=== PATIENT | female | born 1940 | race Caucasian/White ===

== ENCOUNTER 2017-01-22 06:13 | Day surgery (SDC) | payer OTHER ==
[~2017-01-22] VITALS: Ht 162.6 cm; Wt 93.8 kg
[~2017-01-22 06:13] MED LIST: AMBIEN5 MG PO; AMITRIPTYLINE H10 MG PO; ARMOUR THYROID30 MG PO; ASPIRIN81 M1 PO; ATACAND8 MG PO; ATROVENT IN; COMBIVENT RESPIMAT IN; CYCLOBENZAPRINE10 MG PO; ESTRACE1 MG PO; EXCEDRIN EXTRA STREN PO; FISH OIL1000 M1 PO; HCTZ/TRIAMTEREN1 TA1 PO; ICAPS PO; IMITREX25 MG PO; LEVOTHYROXINE25 MCG PO; MELOXICAM15 MG; MELOXICAM7.5 MG PO; METFORMIN HCL500 MG PO; MULTIPLE VITAMIN PO; MULTIVITAMIN1 TAB PO; NEURONTIN300 MG PO; NITROSTAT0.4 MG SL; OMEPRAZOLE20 M1 PO; PERCOCET1 TA1 PO; POTASSIUM CHLO20 ME4 PO; PROTONIX40 MG PO; RED YEAST RICE PO; TYLENOL325 MG PO; VERAPAMIL HCL120 M3 PO; VERAPAMIL HCL240 M4 PO; ZYRTEC ALLERGY10 MG PO
--- NOTE | 2017-01-22 06:58 | NUR ---
PREOP INSTRUCTIONS GIVEN TO PATIENT AND HER . QUESTIONS ANSWERED. PATIENT VERBALIZES UNDERSTANDING. CONSENT CONFIRMED. TYLENOL STARTED ON TRANSPORT. PATIENT APPEARS TO BE RESTING COMFORTABLY. IN ROOM. KB
--- NOTE | 2017-01-22 07:39 | NUR ---
INTRODUCED SELF TO PT IN PRE OP HOLDING. PT VERIFIED NAME, BIRTHDATE, ALLERGIES AND SURGICAL CONSENT. PT STATED NPO PREMIDINIGHT. PT TOOK ROUTINE MEDICATIONS YESTERDAY BUT NONE TODAY. PT VOIDED IMMEDIATELY PRIOR TO TRANSPORT TO PRE OP HOLDING. 1000MG IV TYLENOL INFUSING IN PRE OP HOLDING. ANTIBIOTIC AVAIL FOR INFUSION BY ANESTHESIA. PT CHART REVIEWED AND PT QUESTIONS ANSWERED. KIMBERLEE
--- NOTE | 2017-01-22 08:27 | NUR ---
PT RESTATED NAME, BIRTHDATE AND SURGICAL PROCEDURE AFTER ENTERING OR SUITE. PT MOVED TO OR BED WITH MINIMAL ASSIST. PILLOW PLACED UNDER PT KNEES FOR POSITION OF COMFORT. PULSATILE STOCKINGS INITIATED PRIOR TO INDUCTION. BILATERAL ARMS TUCKED WITH EGGCRATE ON LEFT ELBOW, BED SUPERVISOR INSPECTION ROOM AT RIGHT SIDE FOR RIGHT ARM. RIGHT FOREARM WRAPPED WITH SOFT ROLL UNDER BLOOD PRESSURE CUFF. SD
--- NOTE | 2017-01-22 08:39 | NUR ---
SCDs ON. INSTRUCTED ON I.S. RETURN DEMONSTRATION. KB
[2017-01-22] MEDS ORDERED: PERCOCET1 TA1 PO (09:42)
--- NOTE | 2017-01-22 09:44 | Provider's Discharge Care Plan ---
Problem, Goal, Plan Problem List 1. STATUS POST LAPAROSCOPIC LYSIS OF ADHESIONS/OPEN REPAIR RECURRENT INCISIONAL HERNIA Goals: Improve disease control, Therapeutic intervention Instructions: Follow up as directed, Take meds as directed, abdominal binder 09/03 as tight as possible
--- NOTE | 2017-01-22 09:54 | NUR ---
PT TRANSPORTED TO PACU, REPORT GIVEN TO PACU NURSE. SD
--- NOTE | 2017-01-22 09:59 | Operative Report ---
Operative Report Date of Surgery: 01/22/17 Preoperate Diagnosis: recurrent incisional hernia Postoperative Diagnosis: recurrent incisional incarcerated hernia Surgeon: Stevenson Reyes MD Online Facilitator Surgeon: none Procedure Performed: Laparoscopic lysis of adhesions with reduction of incarcerated hernia. Open repair of recurrent incisional hernia with onlay ProGrip mesh 15 x 10 cm Anesthesia: Gen. endotracheal Indications: 76-year-old female with numerous abdominal surgeries. Having undergone repair of an incisional midline hernia in the past June 2015. Approximately 6 months ago noticed a bulge in the upper midline incision. FINDINGS: The anterior abdominal wall omental and small bowel adhesions. The fascial defect containing adherent omentum. Fascial defect measuring approximately 9 x 5 cm in size. Primary closure with onlay mesh 15 x 10 cm. Surgical Technique: Patient brought to the operating room placed in the dorsal supine position where she underwent general endotracheal anesthesia. After proper anesthesia taken effect, the patient's abdomen was prepped using Betadine and draped in a sterile fashion. The previously palpable recurrent incisional hernia was identified. The small transverse incision made in the left upper quadrant just below the rib cage. The abdominal cavity was entered using blunt dissection. A 10 mm trocar sleeve was introduced into abdominal cavity and a pneumoperitoneum obtained using CO2 insufflation to approximately 14-15 mmHg pressure. Once this pressure was reached, the left ovary the ureter was introduced into abdominal cavity. The aforementioned findings noted. A small transverse incision made in the left anterior lateral abdominal wall through which a 10 mm trocar was introduced under direct visualization. Just proximal to this a second 5 mm trocar was introduced in the abdominal cavity as well. Using a combination of blunt dissection and the ThunderBeat, the adhesions to the anterior abdominal wall taken down carefully to avoid injury to the bowel. This dissection took at least 60% of the case surgical time. Eventually we were able to reduce the trap the fascial contents back into the abdominal cavity, thus reducing the incarcerated hernia. Once the undersurface of the abdominal wall were cleared of adhesions, the case was converted to an open procedure. Through a previous midline incision, an incision was made down through skin, subcutaneous tissue. The underlying hernia sac was dissected free from the surrounding fibrotic subcutaneous tissue back to fascia using electrocautery. The hernia sac was transected at the level of the fascia and handed off the field and sent to pathology. The fascia identified and closed transversely using [id number] #1 Prolene. A 15 x 10 cm piece of ProGrip mesh was selected, cut in an ovoid fashion and placed over our repair site and securing it to the fascia using the AbsorbaTac. The wound was irrigated with warm normal saline antibiotic solution. The wound was closed in layers using 3-0 Polysorb interrupted suture to prevent seroma formation. The skin was approximated using running 4-0 silk dermal Polysorb suture. Steri-Strips were placed over the wound. Trochars were removed from the abdominal cavity. Trocar sites were approximated using interrupted 4-0 sub dermal Polysorb. Steri-Strips were placed across the wound. Sterile occlusive dressings placed over each wound. Patient was placed abdominal binder. Patient was extubated and transferred to the recovery room in stable condition. There were no intraoperative anesthetic complication. CONDITION: Stable. Anesthesia recovery room COMPLICATIONS: None ESTIMATED BLOOD LOSS: None FLUIDS:: 350 cc lactate Ringer's DRAINS/PACKING: None SPECIMEN: Hernia sac
--- NOTE | 2017-01-22 10:00 | NUR ---
REC'D FROM OR ;SPONT RESP. HOB ELEVATED 30 DEGREES. ABDOMINAL BINDER ON. INSTRUCTED TO DO CALF PUMPING EXERCISES- STRONG PEDAL PUSH.
--- NOTE | 2017-01-22 10:31 | NUR ---
REPORTS PAIN TO BE 5/10; PAIN MEDS GIVEN; PAIN IMPROVED AND PT ASKING TO GO UP TO HER ROOM
[2017-01-22 12:01] VITALS: BP 154/61
--- NOTE | 2017-01-22 12:09 | NUR ---
PATIENT RETURNED TO THE FLOOR SLEEPY, BUT AROUSABLE. NOW AWAKE AND TALKING. DENIES PAIN AND NAUSEA. UP TO CHAIR. PO OFFERED. KB
--- NOTE | 2017-01-22 12:42 | NUR ---
SITTING UP IN CHAIR EATING LIGHT MEAL. TOLERATING PO WELL. AMBULATED TO BR. VOIDED. DENIES PAIN AT THIS TIME. KB
--- NOTE | 2017-01-22 13:20 | NUR ---
UP INDEPENDENTLY IN ROOM. VOIDED. TOLERATING PO. AMBULATED IN THE BRODY. RETURN DEMONSTRATION WITH I.S. DISCHARGE INSTRUCTIONS GIVEN TO PATIENT. QUESITONS ANSWERED. PATIENT VERBALIZES UNDERSTANDING. DISCHARGED HOME WITH HER . KB
== END 2017-01-22 13:22 | disposition home or self-care (01) ==
LOC: SCU SRH 06:13 → OR SRH 06:13
PROVIDERS: Specialist
PROC: 0WUF0JZ Supplement Abdominal Wall with Synthetic Substitute, Open Approach (ICD-10-PCS; principal; 2017-01-22 07:30)
DX: K43.0 Incisional hernia with obstruction, without gangrene (principal); E11.9 Type 2 diabetes mellitus without complications; Z79.84 Long term (current) use of oral hypoglycemic drugs; I10 Essential (primary) hypertension; J45.909 Unspecified asthma, uncomplicated
CPT/HCPCS: 29229; 29240; 50002; 60001; 70002; 80102; 80212; 80248; 80445; 82669; 82897; 83587; 83710; 83919; 83982; 84038; 84041; 84514; 84526